=== PATIENT | female | born 1985 | race Caucasian/White ===

== ENCOUNTER 2017-11-07 20:54 | Emergency (ER) | END 2017-11-08 00:05 | disposition left against medical advice (07) ==

== ENCOUNTER 2018-06-05 11:34 | Inpatient (IN) | END 2018-06-08 12:10 | disposition home or self-care (01) | DRG 807 ==

== ENCOUNTER 2018-06-30 14:50 | Emergency (ER) | END 2018-06-30 16:15 | disposition home or self-care (01) ==